=== PATIENT | male | born 1970 | race Caucasian/White ===

== ENCOUNTER → 2017-09-16 | Outpatient (CLI) | payer BC ==
--- NOTE | 2017-09-16 17:17 | PCVCIMAG ---
APPROVED REPORT Study performed: 09/16/2017 15:24:09 EXAM: Comprehensive 2D, Doppler, and color-flow Echocardiogram Patient Location: Echo lab Status: routine BSA: 2.26 HR: 53 bpmBP: 124/78 mmHg Rhythm: Bradycardia Other Information Study Quality: Adequate Indications Mitral Valve Prolapse Murmur mitral regurgitation 2D Dimensions LVEF(%): 45.41 (>50%) IVSd: 11.47 (7-11mm) LVDd: 47.56 mm PWd: 10.92 (7-11mm) LVDs: 36.82 (25-40mm) Left Atrium: 43.42 (27-40mm) Aortic Root: 33.84 mm LV Single Plane 4CH: 61.82 % LV Single Plane 2CH: 54.46 %Gerard's LVEF: 58.14 % Biplane EF: 59.2 % Volumes Left Atrial Volume (Systole) Single Plane 4CH: 65.20 mLSingle Plane 2CH: 93.51 mL LA ESV Index: 36.00 mL/m2 Aortic Valve AoV Peak Adi.: 1.44 m/s AO Peak Gr.: 8.33 mmHgLVOT Max P.37 mmHg LVOT Max V: 1.16 m/s Mitral Valve E/A Ratio: 1.4 MV Decel. Time: 231.36 ms MV E Max Adi.: 0.71 m/s MV A Adi.: 0.49 m/s MV PHT: 67.09 ms IVRT: 100.35 ms Pulmonary Valve PV Peak Adi.: 0.85 m/sPV Peak Gr.: 2.86 mmHg Pulmonary Vein P Vein S: 0.30 m/sP Vein A: 0.34 m/s P Vein D: 0.47 m/sP Vein A Dur.: 117.6 msec P Vein S/D Ratio: 0.64 Tricuspid Valve TR Peak Adi.: 2.04 m/s TR Peak Gr.: 16.68 mmHg Left Ventricle The left ventricle is normal size. There is normal LV segmental wall motion. There is normal left ventricular wall thickness. Left ventricular systolic function is normal. The left ventricular ejection fraction is within the normal range. LVEF is 55-60%. The left ventricular diastolic function is normal. Right Ventricle The right ventricle is normal size. The right ventricular systolic function is normal. Atria Left atrium is mildly dilated. The right atrium size is normal. Aortic Valve The aortic valve is normal in structure. No aortic regurgitation is present. There is no aortic valvular stenosis. 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 No evidence of mitral valve stenosis. There is moderate posterior mitral valve prolapse. Tricuspid Valve The tricuspid valve is normal in structure. Trace tricuspid regurgitation with PAP of 24 mmHg. Pulmonic Valve The pulmonary valve is normal in structure. There is no pulmonic valvular regurgitation. Great Vessels The aortic root is normal in size. IVC is normal in size and collapses with >50% inspiration Pericardium There is no pericardial effusion. <Conclusion> The left ventricle is normal size. There is normal left ventricular wall thickness. LVEF is 55-60%. The left ventricular diastolic function is normal. The right ventricle is normal size. Left atrium is mildly dilated. The right atrium size is normal. There is no aortic valvular stenosis. Moderate mitral regurgitation. Trace tricuspid regurgitation with PAP of 24 mmHg. There is no pericardial effusion. 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
== END | disposition home or self-care (01) ==
LOC: PCVCIMAG 15:19
PROVIDERS: ATTEND Internal Medicine Cardiovascular Disease
DX: I34.1 Nonrheumatic mitral (valve) prolapse (principal); I34.0 Nonrheumatic mitral (valve) insufficiency; R01.1 Cardiac murmur, unspecified
CPT/HCPCS: 93306

== ENCOUNTER → 2019-04-13 | Outpatient (CLI) | payer BC, OTHER ==
--- NOTE | 2019-04-13 16:56 | PCVCIMAG ---
APPROVED REPORT Study performed: 04/13/2019 13:24:33 EXAM: Comprehensive 2D, Doppler, and color-flow Echocardiogram Patient Location: Echo lab Status: routine BSA: 2.26 HR: 53 bpmBP: 140/100 mmHg Rhythm: NSR Other Information Study Quality: Good Risk Factors: Cardiac Risk Factors: Murmur Indications Myxomatous mitral valve. Mitral Valve prolapse. History of breast cancer. 2D Dimensions IVSd: 14.83 (7-11mm)LVOT Diam: 23.08 (18-24mm) LVDd: 44.24 mm PWd: 14.05 (7-11mm)Ascending Ao: 43.91 (22-36mm) LVDs: 27.94 (25-40mm) Left Atrium: 43.44 (27-40mm) Aortic Root: 33.70 mm LV Single Plane 4CH: 64.44 % LV Single Plane 2CH: 66.18 % Biplane EF: 63.0 % Volumes Left Atrial Volume (Systole) Single Plane 4CH: 63.08 mLSingle Plane 2CH: 96.42 mL LA ESV Index: 35.00 mL/m2 Aortic Valve AoV Peak Adi.: 1.48 m/s AO Peak Gr.: 8.79 mmHg Mitral Valve E/A Ratio: 1.2 MV Decel. Time: 198.08 ms MV E Max Adi.: 1.05 m/s MV A Adi.: 0.90 m/s TDI E/Lateral E': 8.75E/Medial E': 8.08 Medial E' Adi.: 0.13 m/s Lateral E' Adi.: 0.12 m/s Pulmonary Valve PV Peak Gr.: 2.96 mmHg Pulmonary Vein P Vein S: 0.57 m/sP Vein A: 0.36 m/s P Vein D: 0.51 m/sP Vein A Dur.: 86.5 msec P Vein S/D Ratio: 1.12 Left Ventricle The left ventricle is normal size. There is normal LV segmental wall motion. There is normal left ventricular wall thickness. Left ventricular systolic function is normal. The left ventricular ejection fraction is within the normal range. LVEF is 60-65%. The left ventricular diastolic function is normal. Right Ventricle The right ventricle is normal size. The right ventricular systolic function is normal. Atria Left atrium is borderline dilated. The right atrium size is normal. Aortic Valve The aortic valve is normal in structure. No aortic regurgitation is present. There is no aortic valvular stenosis. Mitral Valve Myxomatous mitral vavle leaflets. Posterior leaflet prolapse. Moderate eccentric mitral regugitation. No evidence of mitral valve stenosis. Tricuspid Valve The tricuspid valve is normal in structure. There is no tricuspid valve regurgitation noted. Pulmonic Valve The pulmonary valve is normal in structure. There is no pulmonic valvular regurgitation. Great Vessels The aortic root is normal in size. The ascending aorta is mildly dilated measuring 4.4cm. IVC is normal in size and collapses >50% with inspiration. Pericardium There is no pericardial effusion. <Conclusion> The left ventricle is normal size. LVEF is 60-65%. The left ventricular diastolic function is normal. The right ventricle is normal size. Left atrium is borderline dilated. The aortic valve is normal in structure. Myxomatous mitral vavle leaflets. Posterior leaflet prolapse. Moderate eccentric mitral regugitation. The tricuspid valve is normal in structure. The aortic root is normal in size. The ascending aorta is mildly dilated measuring 4.4cm. There is no pericardial effusion.
== END | disposition home or self-care (01) ==
LOC: PCVCIMAG 13:12
PROVIDERS: ATTEND Internal Medicine Cardiovascular Disease
DX: I34.0 Nonrheumatic mitral (valve) insufficiency (principal); E78.5 Hyperlipidemia, unspecified
CPT/HCPCS: 93306